=== PATIENT | male | born 1990 | race Caucasian/White ===

== ENCOUNTER 2020-06-08 00:23 | Inpatient (IN) | payer BC, SELFPAY ==
[2020-06-08 00:37] VITALS: BP 136/84; PULSE 106; RESP 18; TEMP 36.6; O2SAT 99; BMI 26.6
--- NOTE | 2020-06-08 00:39 | ECG_ITS ---
[facility] Test Date: 2020-06-08 Pat Name: Will Osorio Department: Room: Gender: Male Bods Developer: : 1990 Requested By: Kayce Hagen Order Number: [id number] Grimes MD: Lenora Lynch M.D. Measurements Intervals [place] Rate: 90 P: 50 MT: 155 QRS: 36 QRSD: 106 T: 29 QT: 347 QTc: 426 Interpretive Statements SINUS RHYTHM Compared to ECG 11/13/2018 18:27:25 Sinus arrhythmia no longer present Electronically Signed On 06-08-2020 17:56:26 CDT by Lenora Lynch M.D. [id number]
--- NOTE | 2020-06-08 01:01 | ED_ITS ---
HPI - Psych General: Chief Complaint: Psychiatric Symptoms Stated Complaint: 96 hr hold Time Seen by Provider: 06/08/20 00:51 Source: patient and police Mode of arrival: ambulatory Limitations: no limitations History of Present Illness: HPI Narrative: Will is a 30-year-old male who comes in complaining of suicidal ideation. States that tonight he tried to hang himself but when he felt uncomfortable in his neck he could not carry out the act. He states he is very depressed and upset. He states he is had this problem in the past. He is here today stating he needs to get help. He was brought in by law enforcement. Review of Systems Const: Denies: fever(s), chills, body aches, fatigue, malaise or diaphoresis Eyes: Denies: change in vision, blurry vision, photophobia, eye discomfort, eye discharge, eye redness or yellow eyes ENMT: Denies: throat pain, odynophagia, hoarseness, swelling of lips/tongue, ear or mastoid pain, ear discharge, change in hearing or nasal discharge Card: Denies: chest pain, palpitations, irregular heart rhythm, edema, lightheadedness, syncope, pre-syncope, dyspnea on exertion or orthopnea Resp: Denies: dyspnea, productive cough, non-productive cough, wheezing, hemoptysis or chest congestion GI: Denies: abdominal pain, nausea, vomiting, hematemesis, coffee ground emesis, heartburn, diarrhea, constipation, GI cramping, hematochezia or melena : Denies: flank pain, dysuria, urinary frequency, urinary urgency or hematuria Musc: Denies: neck pain, back pain, extremity pain, extremity swelling, joint pain, joint swelling, joint redness, joint warmth or joint stiffness Skin/Breast: Denies: rash, pruritus, erythema, skin pain or skin tenderness Neuro: Denies: headache(s), numbness in extremities, weakness in extremities, sensory changes, lack of coordination, difficulty walking, dizziness, vertigo, confusion, Slurred speech present or seizure-like activity Thien/Lymph: Denies: easy bruising, easy bleeding, petechiae, purpura or enlarged lymph nodes All/Imm: Denies: urticaria, throat swelling, tongue swelling, facial swelling or acute wheezing MDM - Psych MDM Narrative: Medical decision making narrative: The case reviewed with Dr. Claros, he agrees to admission to the neuropsychiatric unit. Lab Data: Attestation: I reviewed the patient's lab results. Labs: Lab Results 06/08/20 06/08/20 06/08/20 Range/Units 01:00 01:00 01:00 WBC 9.3 (4.0-10.0) 10^3/ uL RBC 6.01 H (4.1-5.3) 10^6/u L Hgb 17.8 H (11.7-16.6) g/dL Hct 51.4 (42.0-52.0) % MCV 85.5 (80-94) fL MCH 29.6 (28.0-34.0) pg MCHC 34.6 (30.0-36.0) g/dL RDW 12.5 (12.1-15.1) % Plt Count 264 (130-400) 10^3/c mm MPV 9.5 (7.4-10.4) fL Neut % (Auto) 51.0 % Lymph % (Auto) 38.6 % S[place] % (Auto) 7.1 % Eos % (Auto) 2.5 % Baso % (Auto) 0.6 % Neut # (Auto) 4.72 (1.8-7.7) 10^3/u L Lymph # (Auto) 3.6 (0.8-4.8) 10^3/u L S[place]y # (Auto) 0.7 (0.2-0.9) 10^3/u L Eos # (Auto) 0.2 (0.0-0.8) 10^3/u L Baso # (Auto) 0.1 (0.0-0.1) 10^3/u L Nucleated RBC % (a uto) 0 % Nucleated RBCs # 0.0 /100WBC Sodium 140 (136-145) mmol/L Potassium 3.8 (3.5-5.1) mmol/L Chloride 105 (98-107) mmol/L BUN 8 (6-20) mg/dL Glucose 97 (65-115) mg/dL Calculated Osmolal ity 288 (285-295) mOsm/k g Calcium 9.4 (8.5-10.5) mg/dL Total Bilirubin 0.4 (0.15-1.2) mg/dL AST 35 (0-40) U/L Alkaline Phosphata se 116 (40-130) IU/L Total Protein 7.8 (6.6-8.7) g/dL Albumin 5.0 (3.5-5.2) g/dL Globulin 2.8 (1.3-4.6) g/dL TSH 1.27 (0.27-4.20) uIU/ mL Urine Opiates Scre en Negative (Negative) ng/mL Ur Barbiturates Sc reen Negative (Negative) ng/mL Ur Phencyclidine S crn Negative (Negative) ng/mL Ur Amphetamines Sc reen Negative (Negative) ng/mL U Benzodiazepines Scrn Negative (Negative) ng/mL Urine Cocaine Scre en Negative (Negative) ng/mL U Marijuana (THC) Screen Positive H (Negative) ng/mL EKG Data^: EKG 1: Attestation: I personally reviewed and interpreted this EKG as follows: EKG interpretation date: 06/08/20 EKG interpretation time: 01:13 Interpretation: Normal sinus rhythm at 90 beats a minute, normal axis, no blocks, normal intervals, normal QTC. Discharge Plan Discharge Patient Disposition: Admitted As Inpatient Clinical Impression: Suicidal ideation Condition: Stable Coding Level of Care Code ED Senior C Software Developer for Corrie Jules
[2020-06-08 01:07] LABS: Basophils # 0.1 10^3/uL (0.0-0.1); Basophils % 0.6 %; Eosinophils # 0.2 10^3/uL (0.0-0.8); Eosinophils % 2.5 %; Hematocrit 51.4 % (42.0-52.0); Hemoglobin 17.8 g/dL (11.7-16.6); Lymphocytes # 3.6 10^3/uL (0.8-4.8); Lymphocytes % 38.6 %; Mean Corpuscular HGB Conc 34.6 g/dL (30.0-36.0); Mean Corpuscular Hemoglobin 29.6 pg (28.0-34.0); Mean Corpuscular Volume 85.5 fL (80-94); Mean Platelet Volume 9.5 fL (7.4-10.4); Monocytes # 0.7 10^3/uL (0.2-0.9); Monocytes % 7.1 %; Neutrophils # 4.72 10^3/uL (1.8-7.7); Nucleated Red Blood Cells % 0 %; Platelet Count 264 10^3/cmm (130-400); Red Blood Count 6.01 10^6/uL (4.1-5.3); Red Cell Distribution Width 12.5 % (12.1-15.1); White Blood Count 9.3 10^3/uL (4.0-10.0)
[2020-06-08] MEDS: LORazepam 1 mg Tablet PO (01:18)
[2020-06-08 01:24] LABS: Amphetamines Screen Urine Negative (Negative); Barbiturates Screen Urine Negative (Negative); Benzodiazepines Screen Urine Negative (Negative); Cocaine Screen Urine Negative (Negative); Opiate Screen Urine Negative (Negative); PCP Screen Urine Negative (Negative); THC Screen Urine Positive (Negative)
[2020-06-08 01:34] LABS: Alanine Aminotransferase 53 U/L (0-41); Alcohol Level 110 mg/dL (0-10); Alkaline Phosphatase 116 IU/L (40-130); Anion Gap 19.8 (5-19); Aspartate Amino Transferase 35 U/L (0-40); Blood Urea Nitrogen 8 mg/dL (6-20); Calcium 9.4 mg/dL (8.5-10.5); Carbon Dioxide 19 mmol/L (22-29); Chloride 105 mmol/L (98-107); Globulin 2.8 g/dL (1.3-4.6); Glomerular Filtration Rate 158.2 mL/min (90-130); Glucose 97 mg/dL (65-115); Osmolality Calculated 288 mOsm/kg (285-295); Potassium 3.8 mmol/L (3.5-5.1); Sodium 140 mmol/L (136-145); Thyroid Stimulating Hormone 1.27 uIU/mL (0.27-4.20); Total Bilirubin 0.4 mg/dL (0.15-1.2); Total Protein 7.8 g/dL (6.6-8.7)
[2020-06-08 01:41] LABS: Acetaminophen < 5.0 ug/mL (10-30); Salicylate < 0.3 mg/dL (3-10)
[2020-06-08 04:53] VITALS: BP 114/78; PULSE 98; RESP 18; TEMP 36.4; O2SAT 95
[2020-06-08 06:00] VITALS: BP 114/78; PULSE 98; RESP 18; TEMP 36.4; O2SAT 95
[2020-06-08 14:00] VITALS: BP 116/68; PULSE 97; RESP 18; TEMP 36.9; O2SAT 97
--- NOTE | 2020-06-08 16:07 | PM.NHP ---
Providers/Chief Complaint Admitting Physician: Grzegorz Claros MD Chief Complaint: 96 hr hold HPI NPU History of Present Illness Will Osorio is a 30 year old male who presented to the emergency department with the following report: Chief Complaint: Psychiatric Symptoms Stated Complaint: 96 hr hold Time Seen by Provider: 06/08/20 00:51 Source: patient and police Mode of arrival: ambulatory Limitations: no limitations History of Present Illness: HPI Narrative: Will is a 30-year-old male who comes in complaining of suicidal ideation. States that tonight he tried to hang himself but when he felt uncomfortable in his neck he could not carry out the act. He states he is very depressed and upset. He states he is had this problem in the past. He is here today stating he needs to get help. He was brought in by law enforcement. He was admitted to the neuropsychiatric unit for definitive treatment of those issues. Will presents today reporting that he has had depression and difficulties with alcohol for years now. He had previously been on naltrexone as well as trials of Prozac, Zoloft, Celexa and Effexor all of which she reports were not effective and Effexor was the worst. He reports that he has been feeling really depressed for about 3 weeks and he doesn't know why he just feels it's something internal to him. He reports that he does have 2 family members his brother committed suicide in 2017 and an uncle who also committed suicide who had significant mental health issues. He reports that his drinking has been a significant problem is a history of having at least one DUI. He was requesting to be discharged because his daughters supposed to be baptized tomorrow. We discussed the risks, benefits and alternatives of starting some medication prior to him being discharged and he understood and agreed to proceed as is documented in his note. Psychiatric history: As above. He reports that this is his first hospitalization he has had outpatient services. Substance abuse history: He endorses significant alcohol and marijuana use but denies any other illicit drug use he's never been to a rehabilitation that he has had a DUI. Family history: As above. He reports that addiction is significant in his family but is not sure about mental health and then there are the 2 suicides that he reported in his family. Developmental history: He reports that he had a normal and delivery. He reports that he learn to walk and talk and met his developmental milestones on time. He reports he went to school that he did not need speech therapy, learning support, emotional support or special education classes. Psychosocial history: He reports that his parents were together and gave to him and his brother. His brother committed suicide was his only sibling. He reports it is childhood was a great and he denied emotional physical or sexual abuse. He endorsed a graduated from high school and has a couple years of college but never circulated. Endorses being heterosexual with his longest relationship being along with his current fianc?e several years. He never been officially , he has 4 daughters with his fianc?e, he never in the and he endorses that he does go to evangelical. 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 He lives in a house with his fianc? and 4 daughters. Legal history: He denied significant legal issues. Medical history: He denied any significant medical issues. Meds NPU Home Medications Medication Instructions Recorded Confirmed Last Taken Type No Known Home Medications 06/08/20 06/08/20 Unknown History Allergies Allergy/AdvReac Type Severity Reaction Status Date / Time No Known Allergies Allergy Verified 06/08/20 00:46 Mental Status Exam MSE Comments: This is a well-nourished, well-developed white male with adequate dress grooming and I contact. Significant tattoos on exposed skin including his fingers. No abnormal movements except for psychomotor retardation. Cooperative with exam in mild distress. Speech was decreased rate and volume. Mood described as depressed affect irritable. Thought process organized. Thought content: Patient denied current suicidal or homicidal ideations, there were no delusions reported noted, he denied any auditory or visual hallucinations. Attention and concentration were intact and memory appeared reliable but none were formally tested. He is alert and oriented ?3. Insight and judgment are limited, but improving. Impulse control is limited. Vitals/I&O/Wt Last Vital Signs Temp 98.4 F 06/08/20 14:00 Pulse 97 06/08/20 14:00 Resp 18 06/08/20 14:00 BP 116/68 06/08/20 14:00 Pulse Ox 97 06/08/20 14:00 Weight last 48 hrs Weight 81.647 kg Data NPU : 06/08/20 01:00 06/08/20 01:00 A&P Additional A&P Information This is a 30-year-old white male with a long history of depression, anxiety and substance abuse issues including alcohol and marijuana who presents after a suicide attempt that was reportedly initiated and then discontinued reportedly an openness to start medication but also attempting to get discharge reporting that he wants to attend his daughter's protestant. 1. Continue current medication. Except: Start naltrexone 50 mg by mouth daily and Wellbutrin XL on the 50 mg by mouth every morning we will give a dose of Wellbutrin SR today since since it is later in the day. 2. Continue every 15 minute checks for safety. 3. Encourage individual, group and milieu therapy. 4. Encourage sober living at the highest level of treatment to which she is willing to commit. 5. Patient is on a 96 hour hold will evaluate for safety for discharge. Involuntary Hold Information 96 Hour Hold: 96 Hour Involuntary Admission: Yes 96 Hour Hold Ending Date: 06/13/20 96 Hour Hold Ending Time: 01:35 Attestations NPU Medical Necessity Statement*: Inpatient hospitalization is medically necessary and the clinically appropriate intervention at this time. We will initiate medications and make changes as indicated. He will be in the hospital for over to midnight. Likely length of stay 2-4 days. Coding Level of Care Code Acute Pillowcase Turner for Corrie Jules
[2020-06-08] MEDS: buPROPion SR (12 HR) 150 mg Tablet PO (16:23)
[2020-06-08] MEDS: naltrexone hcl 50 mg Tablet PO (16:23)
[2020-06-08] MEDS: haloperidol 5 mg Tablet PO (17:42)
[2020-06-08] MEDS: nicotine 21 mg Patch 1 PATCH TRANSDERMA (18:01)
[2020-06-08 20:42] VITALS: BP 120/80; PULSE 78; RESP 17; TEMP 36.6; O2SAT 98
[2020-06-09 06:00] VITALS: BP 129/87; PULSE 83; RESP 16; TEMP 36.6; O2SAT 98
[2020-06-09] MEDS: naltrexone hcl 50 mg Tablet PO (09:17)
[2020-06-09] MEDS: buPROPion XL (24 HR) 150 mg Tablet PO (09:17)
[2020-06-09] MEDS: nicotine 2 mg Gum BUCCAL (11:21)
[2020-06-09 14:00] VITALS: BP 138/87; PULSE 85; RESP 18; TEMP 36.9
--- NOTE | 2020-06-09 14:41 | P.PN_ITS ---
Subjective NPU Subjective: Interval history: Will presented today continuing the lobby for discharge. He agreed that we could reach out to his significant other, and she did report that she was ultimately okay with him coming home as long as he was on medication and treatment. We discussed continued concerns about his limited addressing of the significance and seriousness of his suicidal behavior. He is reporting that the medication feels helpful and that he is open to ongoing follow-up. He reports that he is eating and sleeping fine. Mental Status Exam MSE Comments: This is a well-nourished, well-developed white male with adequate dress grooming and I contact. Significant tattoos on exposed skin including his fingers. No abnormal movements except for psychomotor retardation. Cooperative with exam in mild distress. Speech was decreased rate and and more normal volume. Mood described as feeling better, affect less irritable. Thought process organized. Thought content: Patient denied current suicidal or homicidal ideations, there were no delusions reported or noted, he denied any auditory or visual hallucinations. Attention and concentration were intact and memory appeared reliable but none were formally tested. He is alert and oriented ?3. Insight and judgment are limited, but improving. Impulse control is limited. Vitals/I&O/Wt Last Vital Signs Temp 97.9 F 06/09/20 19:49 Pulse 85 06/09/20 19:49 Resp 17 06/09/20 19:49 BP 113/74 06/09/20 19:49 Pulse Ox 99 06/09/20 19:49 Weight last 48 hrs Weight 78.018 kg Data NPU : 06/08/20 01:00 06/08/20 01:00 A&P Additional A&P Information This is a 30-year-old white male with a long history of depression, anxiety and substance abuse issues including alcohol and marijuana who presents after a suicide attempt that was reportedly initiated and then discontinued reportedly an openness to start medication but continues to be focused mostly on discharge. 1. Continue current medication. 2. Continue every 15 minute checks for safety. 3. Encourage individual, group and milieu therapy. 4. Encourage sober living at the highest level of treatment to which she is willing to commit. 5. Patient is on a 96 hour hold will evaluate for safety for discharge. Involuntary Hold Information 96 Hour Hold: 96 Hour Involuntary Admission: Yes 96 Hour Hold Ending Date: 06/13/20 96 Hour Hold Ending Time: 01:35 Attestations NPU Medical Necessity Statement*: Inpatient hospitalization is medically necessary and the clinically appropriate intervention at this time. We will initiate medications and make changes as indicated. Likely length of stay 1-3 days. We will consider discharge tomorrow. Coding Level of Care Code Acute Rock Contractor for Corrie Jules
[2020-06-09] MEDS: hyDROXYzine 25 mg Capsule 50 MG PO ×2 (16:14→20:29)
--- NOTE | 2020-06-09 16:16 | PC.NURSE ---
PRN VISTARIL ADMINISTERED VISTARIL 50MG PO FOR PT C/O INCREASING ANXIETY. WILL MONITOR FOR MEDICATION EFFECTIVENESS.
[2020-06-09] MEDS: nicotine 21 mg Patch 1 PATCH TRANSDERMA (16:32)
[2020-06-09 19:49] VITALS: BP 113/74; PULSE 85; RESP 17; TEMP 36.6; O2SAT 99
[2020-06-09] MEDS: trazodone 50 mg Tablet PO (20:30)
[2020-06-10 06:00] VITALS: BP 102/64; PULSE 77; RESP 16; TEMP 36.4; O2SAT 100
[2020-06-10] MEDS: buPROPion XL (24 HR) 150 mg Tablet PO (08:00)
[2020-06-10] MEDS: naltrexone hcl 50 mg Tablet PO (08:00)
--- NOTE | 2020-06-10 12:06 | PM.NDC ---
Reason for Visit Reason for Visit: 96 hr hold Brief History: History of Present Illness Will Osorio is a 30 year old male who presented to the emergency department with the following report: Chief Complaint: Psychiatric Symptoms Stated Complaint: 96 hr hold Time Seen by Provider: 06/08/20 00:51 Source: patient and police Mode of arrival: ambulatory Limitations: no limitations History of Present Illness: HPI Narrative: Will is a 30-year-old male who comes in complaining of suicidal ideation. States that tonight he tried to hang himself but when he felt uncomfortable in his neck he could not carry out the act. He states he is very depressed and upset. He states he is had this problem in the past. He is here today stating he needs to get help. He was brought in by law enforcement. He was admitted to the neuropsychiatric unit for definitive treatment of those issues. Will presents today reporting that he has had depression and difficulties with alcohol for years now. He had previously been on naltrexone as well as trials of Prozac, Zoloft, Celexa and Effexor all of which she reports were not effective and Effexor was the worst. He reports that he has been feeling really depressed for about 3 weeks and he doesn't know why he just feels it's something internal to him. He reports that he does have 2 family members his brother committed suicide in 2017 and an uncle who also committed suicide who had significant mental health issues. He reports that his drinking has been a significant problem is a history of having at least one DUI. He was requesting to be discharged because his daughters supposed to be baptized tomorrow. We discussed the risks, benefits and alternatives of starting some medication prior to him being discharged and he understood and agreed to proceed as is documented in his note. Psychiatric history: As above. He reports that this is his first hospitalization he has had outpatient services. Substance abuse history: He endorses significant alcohol and marijuana use but denies any other illicit drug use he's never been to a rehabilitation that he has had a DUI. Family history: As above. He reports that addiction is significant in his family but is not sure about mental health and then there are the 2 suicides that he reported in his family. Developmental history: He reports that he had a normal and delivery. He reports that he learn to walk and talk and met his developmental milestones on time. He reports he went to school that he did not need speech therapy, learning support, emotional support or special education classes. Psychosocial history: He reports that his parents were together and gave to him and his brother. His brother committed suicide was his only sibling. He reports it is childhood was a great and he denied emotional physical or sexual abuse. He endorsed a graduated from high school and has a couple years of college but never circulated. Endorses being heterosexual with his longest relationship being along with his current fianc?e several years. He never been officially , he has 4 daughters with his fianc?e, he never in the and he endorses that he does go to jehovah's witness. 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 He lives in a house with his fianc? and 4 daughters. Legal history: He denied significant legal issues. Medical history: He denied any significant medical issues. Hospital Course Hospital Course Will presented to the emergency room endorsing depression, suicidal ideation with a recent suicidal gesture. He was admitted to the neuropsychiatric unit for definitive treatment of those issues. On the unit he quickly acclimated to the individual, group and milieu therapies provided though he did essentially asked to be discharged the next morning. He initiated medication and he showed a marked improvement. During the hospitalization he had routine laboratory studies which were within normal limits except for a few outliers. Additionally there was a general medical evaluation which was also within normal limits and revealed no new acute processes. Discharge Summary At the time of discharge, he denied lethality or psychosis. His mood and anxiety were well managed. He endorsed a plan to avoid all drugs of abuse and follow-up with outpatient services as recommended. He was evaluated and deemed absent credible lethality, and he had achieved maximum benefit from an inpatient hospitalization, so he was discharged. Involuntary Hold Information 96 Hour Hold: 96 Hour Involuntary Admission: Yes 96 Hour Hold Ending Date: 06/13/20 96 Hour Hold Ending Time: 01:35 Mental Status Exam MSE Comments: This is a well-nourished, well-developed white male with adequate dress grooming and eye contact. Significant tattoos on exposed skin including his fingers. No abnormal movements. Cooperative with exam in no acute distress. Speech was normal rate and volume. Mood described as pretty good, affect brighter. Thought process organized. Thought content: Patient denied current suicidal or homicidal ideations, there were no delusions reported or noted, he denied any auditory or visual hallucinations. Attention and concentration were intact and memory appeared reliable but none were formally tested. He is alert and oriented ?3. Insight and judgment are improving. Impulse control is limited. Discharge Data Vitals: Last Vital Signs Temp 97.6 F 06/10/20 06:00 Pulse 77 06/10/20 06:00 Resp 16 06/10/20 06:00 BP 102/64 06/10/20 06:00 Pulse Ox 100 06/10/20 06:00 Discharge Plan Discharge Patient Disposition: Home Condition: Stable Prescriptions: New trazodone 50 mg Tablet 50 mg PO BEDTIME PRN (Reason: Sleep) 30 Days Qty: 30 RF: 1 naltrexone 50 mg Tablet 50 mg PO DAILY 30 Days Qty: 30 RF: 1 bupropion HCl 150 mg Tablet Extended Release 24 Hr 150 mg PO DAILY 30 Days Qty: 30 RF: 1 Discharge Orders: Discharge Order (Routine); Ordered 06/10/20 Ordered By: Grzegorz Claros Referrals: Griselda Diallo SEED CLEANER OPERATOR [Other] - 06/17/20 11:00 am (Intake assessment) Discharge Diet: Regular Discharge Activity: Resume usual activity Discharge Date/Time: 06/10/20 13:30 Discharge Attestations NPU Time Spent in Discharge Care*: less than 30 min Specific Discharge Activities: Specific discharge activities: educating patient, discussing with protective services case worker/social workers/dc planners, documenting/other paperwork and evaluating patient/reviewing data Coding Level of Care Code Acute Chief Airline Radio Operator for Corrie Jules
[2020-06-10 12:14] VITALS: BP 102/64; PULSE 77; RESP 16; TEMP 36.4; O2SAT 100
== END 2020-06-10 13:30 | disposition home or self-care (01) | DRG 881 ==
LOC: ER 01:02 → NP 01:58
PROVIDERS: Emergency Medicine; Admitting Provider Psychiatry & Neurology Psychiatry; Visit Provider Psychiatry & Neurology Psychiatry
DX: F32.9 Major depressive disorder, single episode, unspecified (principal); R45.851 Suicidal ideations; F10.20 Alcohol dependence, uncomplicated; F12.20 Cannabis dependence, uncomplicated
CPT/HCPCS: 12345; 80053; 80306; 80307; 84443; 85025; 93005; 99284

== ENCOUNTER → 2020-06-17 11:06 | Outpatient (BNVA) | payer BC, SELFPAY | PROVIDERS: Visit Provider Counselor Professional | DX: F33.2 Major depressive disorder, recurrent severe without psychotic features (principal); F43.8 Other reactions to severe stress | CPT/HCPCS: 90791 ==

== ENCOUNTER → 2020-07-08 14:48 | Outpatient (BNVA) | payer BC, SELFPAY | PROVIDERS: Visit Provider Psychiatry & Neurology Psychiatry | DX: F33.2 Major depressive disorder, recurrent severe without psychotic features (principal); Z63.4 Disappearance and death of family member; F43.12 Post-traumatic stress disorder, chronic; F41.1 Generalized anxiety disorder | CPT/HCPCS: 99204 ==

== ENCOUNTER 2021-04-09 01:10 | Emergency (ER) | payer BC, SELFPAY ==
[2021-04-09 01:21] VITALS: BP 123/74; PULSE 88; RESP 22; TEMP 36.4; O2SAT 123; BMI 26.4
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
--- NOTE | 2021-04-09 02:44 | XRR_ITS ---
PROCEDURE INFORMATION: Exam: XR Right Foot Exam date and time: 04/09/2021 2:44 AM Age: 30 years old Clinical indication: Right; Patient HX: C/O R foot/ankle pain w/o injury; Additional info: Foot pain TECHNIQUE: Imaging protocol: XR Right foot. Views: 3 or more views. COMPARISON: No relevant prior studies available. FINDINGS: Bones/joints: Normal. Soft tissues: Normal. XR/XR foot RT min 3V* 50055 IMPRESSION: No acute findings.
--- NOTE | 2021-04-09 02:44 | XRR_ITS ---
PROCEDURE INFORMATION: Exam: XR Right Ankle Exam date and time: 04/09/2021 2:44 AM Age: 30 years old Clinical indication: Right; Patient HX: C/O R foot/ankle pain w/o injury; Additional info: Right ankle pain TECHNIQUE: Imaging protocol: XR Right ankle. Views: 3 or more views. COMPARISON: No relevant prior studies available. FINDINGS: Bones/joints: Normal. Soft tissues: Normal. XR/XR ankle RT min 3V* [id number] IMPRESSION: No acute findings.
[2021-04-09] MEDS: HYDROcodone-acetaminophen 5-325 mg Tablet 1 TAB PO (02:47)
[2021-04-09 03:45] VITALS: BP 120/75; PULSE 87; RESP 16; O2SAT 100
== END 2021-04-09 03:47 | disposition home or self-care (01) ==
PROVIDERS: Emergency Provider Physician Assistant
DX: M79.671 Pain in right foot (principal); F17.210 Nicotine dependence, cigarettes, uncomplicated
CPT/HCPCS: 73610; 73630; 99283

== ENCOUNTER 2021-05-18 23:49 | Emergency (ER) | payer BC, SELFPAY ==
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
[2021-05-19 00:12] VITALS: BP 145/84; PULSE 123; RESP 18; TEMP 36.6; O2SAT 99; BMI 25.1
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
--- NOTE | 2021-05-19 00:43 | PC.NURSE ---
Report to yennifer VIGIL
[2021-05-19 01:19] VITALS: RESP 22
--- NOTE | 2021-05-19 01:19 | PC.NURSE ---
provider in room at this time with Donato VIGIL
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
[2021-05-19 02:11] VITALS: RESP 17
== END 2021-05-19 02:14 | disposition home or self-care (01) ==
PROVIDERS: Emergency Provider Physician Assistant
DX: S61.411A Laceration without foreign body of right hand, initial encounter (principal); S51.812A Laceration without foreign body of left forearm, initial encounter; S51.012A Laceration without foreign body of left elbow, initial encounter; F17.210 Nicotine dependence, cigarettes, uncomplicated; X99.0XXA Assault by sharp glass, initial encounter
CPT/HCPCS: 12004; 73080; 73090; 73130; 99282